=== PATIENT | female | born 1975 | race Two or more races ===

== ENCOUNTER 2022-02-24 22:16 | Emergency (ER) | payer OTHER ==
[~2022-02-24] VITALS: Ht 180.3 cm; Wt 103.9 kg
[2022-02-24] MEDS ORDERED: ONDANSETRON HCL 4 MG/2 ML VIAL IV ONE (23:00)
[2022-02-24] MEDS ORDERED: SODIUM CHLORIDE 0.9% 1,000 ML IV ONE (23:00)
[2022-02-25 00:01] LABS: Basophils # (auto) 0.1 10 ^3/uL (0-0.2); Basophils % (auto) 1.1 % (0.0-2.0); Eosinophils # (auto) 0.1 10 ^3/uL (0-0.8); Eosinophils % (auto) 0.8 % (0.0-7.0); Hematocrit 45.1 % (36.0-46.0); Hemoglobin 15.4 g/dL (12.2-16.2); Lymphocytes # (auto) 0.5 10 ^3/uL (0.4-5.4); Mean Corpuscular Hemoglobin 29.9 pg (28.0-32.0); Monocytes # (auto) 0 10 ^3/uL (0-1.3); Monocytes % (auto) 0.3 % (0.0-12.0); Neutrophils % (auto) 92.8 % (37.0-80.0); Red Blood Cells 5.13 10^6/uL (4.0-5.20); Red Cell Distribution Width 12.8 % (11.8-14.3); White Blood Cell 10.8 10^3/uL (4.4-10.8)
[2022-02-25] MEDS ORDERED: fentaNYL CITRATE 100 MCG/2 ML VL IV ONE (00:15)
[2022-02-25 00:17] LABS: Albumin 4.1 g/dL (3.4-5.0); Anion Gap 9 (5-15); Blood Urea Nitrogen 16 mg/dL (7-18); Calcium 8.5 mg/dL (8.5-10.1); Carbon Dioxide 27 mmol/L (21-32); Chloride 107 mmol/L (98-107); Glucose 110 mg/dL (74-106); Potassium 3.2 mmol/L (3.5-5.1); Sodium 143 mmol/L (136-145)
[2022-02-25 00:20] LABS: Alanine Aminotransferase 29 U/L (13-56); Alkaline Phosphatase 92 U/L (45-117); Aspartate Aminotransferase 14 U/L (15-37); BUN/Creatinine Ratio 16.2; Bilirubin, Total 0.9 mg/dL (0.2-1.0); CRP High Sensitivity 0.41 mg/dL (< 0.3); GFR African American 77 mL/min; GFR Non-African American 64 mL/min; Total Protein 7.8 g/dL (6.4-8.2)
[2022-02-25 00:31] LABS: Blood Alcohol < 3.0 mg/dL (0-5)
[2022-02-25 01:39] LABS: Amylase 45 U/L (25-115); Lipase 98 U/L (73-393)
[2022-02-25 01:53] VITALS: BP 125/75
[2022-02-25 02:15] LABS: Urine Bacteria FEW /hpf (None Seen); Urine Blood Negative /uL (Negative); Urine Specific Gravity 1.013 (1.001-1.035); Urine WBC 17 /hpf (0 - 5); Urine WBC Clumps PRESENT /hpf (None Seen)
[2022-02-25 02:20] LABS: Amphetamine Screen, Urine NEGATIVE (NEGATIVE); Barbiturate Scree,Urine NEGATIVE (NEGATIVE); Benzodiazephine Screen, Urine NEGATIVE (NEGATIVE); Cannabinoid Screen, Urine NEGATIVE (NEGATIVE); Cocaine Screen, Urine NEGATIVE (NEGATIVE); Opiate Scree,Urine NEGATIVE (NEGATIVE); Phencyclidine Screen, Urine NEGATIVE (NEGATIVE)
[2022-02-25 02:24] LABS: Alcohol, Urine < 3.0 mg/dL (0-10)
[2022-02-25] MEDS ORDERED: cefTRIAXone 1GM/50ML D5W 50 ML IV ONE (02:45)
[2022-02-25] MEDS ORDERED: LEVO-28 PO (02:50)
== END 2022-02-25 04:08 | disposition home or self-care (01) ==
LOC: ER 22:16 → EDBD 22:16 → ER 02-25 03:51
DX: N12 Tubulo-interstitial nephritis, not specified as acute or chronic (principal); N39.0 Urinary tract infection, site not specified; Z20.822 Contact with and (suspected) exposure to COVID-19
CPT/HCPCS: 36415; 71045; 74176; 80053; 80307; 80320; 81001; 82150; 83605; 83690; 84702; 85025; 86141; 87040; 87077; 87086; 87186; 87426; 93005; 96361; 96365; 96375; 99285; J0696; J2405; J3010; J7030